=== PATIENT | female | born 1940 | race Caucasian/White ===

== ENCOUNTER → 2020-10-27 | Day surgery (SDC) | payer MEDICARE, OTHER ==
[~2020-10-27] MED LIST: ANTIVERT25 MG PO; CALTRATE 600+D1 EAC1 PO; ESTRACE1 MG PO; GLUCOSAMINE &1 EACH PO; KRILL OIL500 MG PO; PROGESTERONE100 MG PO; PROMETRIUM100 MG PO; SYNTHROID25 MCG PO; VITAMIN D PO; ZYRTEC10 M3 PO
[2020-10-27 07:43] LABS: HCT 42.4 % (37.0-47.0); HGB 14.2 g/dl (12.5-16.0); MCHC 33.5 g/dL (32.0-36.0); MCV 95.5 fL (78.0-100.0); MPV 9.3 fL (6.0-9.5); RBC 4.44 M/uL (4.20-5.40); RDW 14.1 % (11.5-14.0); WBC 6.3 K/uL (4.0-10.5)
[2020-10-27 08:07] LABS: ALBUMIN 3.8 g/dL (3.4-5.0); BILIRUBIN - TOTAL 1.1 mg/dL (0.2-1.0); BUN/CREAT RATIO (CALC) 10.7 RATIO; CREATININE 1.21 mg/dL (0.51-0.95); GLOBULIN (CALCULATION) 3.4 g/dL; POTASSIUM 3.4 mmol/L (3.5-5.1); TOTAL PROTEIN 7.2 g/dL (6.4-8.2)
== END | disposition home or self-care (01) ==
LOC: FAS 07:07
PROVIDERS: Surgery
DX: Z12.11 Encounter for screening for malignant neoplasm of colon (principal); K57.30 Diverticulosis of large intestine without perforation or abscess without bleeding; I87.399 Chronic venous hypertension (idiopathic) with other complications of unspecified lower extremity; E03.9 Hypothyroidism, unspecified; Z88.5 Allergy status to narcotic agent; Z91.040 Latex allergy status; Z79.899 Other long term (current) drug therapy
CPT/HCPCS: 36415; 80053; J2250; J2704; J7120